=== PATIENT | male | born 1965 | race African-American/Black ===

== ENCOUNTER 2018-02-20 03:28 | Emergency (ER) | payer OTHER ==
[~2018-02-20] VITALS: Ht 177.8 cm; Wt 131.5 kg
[~2018-02-20 03:28] MED LIST: DECADRON IM; FLEXERIL PO; HYDROCODONE-ACE15 ML PO; MULTI-VITAMIN1 EAC5 PO; NORCO 5-325 TA1 EACH PO; NORCO 7.5-3251 EACH PO
[2018-02-20 03:40] VITALS: BP 153/100
[2018-02-20] MEDS ORDERED: IBUPROFEN 800800 M1 PO (03:53)
[2018-02-20] MEDS ORDERED: HYDROCODONE-AP1 EAC6 PO (03:53)
[2018-02-20] MEDS ORDERED: FLEXERIL PO (03:53)
[2018-02-20] MEDS ORDERED: ZESTRIL40 MG PO (04:04)
== END 2018-02-20 04:05 | disposition home or self-care (01) ==
LOC: M.ERS 03:28
DX: M54.31 Sciatica, right side (principal); Z88.0 Allergy status to penicillin; Z88.1 Allergy status to other antibiotic agents; Z88.8 Allergy status to other drugs, medicaments and biological substances

== ENCOUNTER 2018-05-10 23:39 | Emergency (ER) | payer OTHER ==
[~2018-05-10] VITALS: Ht 177.8 cm; Wt 131.5 kg
[~2018-05-10 23:39] MED LIST changes: +HYDROCODONE-AP1 EAC6 PO; +IBUPROFEN 800800 M1 PO; +ZESTRIL40 MG PO
[2018-05-11] MEDS ORDERED: ZESTRIL40 MG (00:02)
[2018-05-11] MEDS ORDERED: GLYBURIDE-METF1 EAC1 (00:04)
[2018-05-11] MEDS ORDERED: NORCO 5-325 TA1 EACH PO (00:12)
[2018-05-11] MEDS ORDERED: FLEXERIL PO (00:12)
[2018-05-11 00:22] VITALS: BP 160/95
== END 2018-05-11 00:23 | disposition home or self-care (01) ==
LOC: M.ERS 23:39
DX: G89.29 Other chronic pain (principal); M54.5 Low back pain; Z88.0 Allergy status to penicillin; Z88.6 Allergy status to analgesic agent; Z88.8 Allergy status to other drugs, medicaments and biological substances

== ENCOUNTER 2018-12-22 02:05 | Emergency (ER) | payer OTHER ==
[~2018-12-22] VITALS: Ht 177.8 cm; Wt 122.5 kg
[~2018-12-22 02:05] MED LIST changes: +CYCLOBENZAPRINE5 MG PO; +GLYBURIDE-METF1 EAC1; +PERCOCET PO; +ZESTRIL40 MG
[2018-12-22] MEDS ORDERED: FLEXERIL PO (02:40)
[2018-12-22] MEDS ORDERED: PERCOCET 5-3251 EACH PO (02:40)
[2018-12-22 02:57] VITALS: BP 132/90
== END 2018-12-22 02:57 | disposition home or self-care (01) ==
LOC: M.ERS 02:05
DX: M54.16 Radiculopathy, lumbar region (principal); E11.9 Type 2 diabetes mellitus without complications; Z88.6 Allergy status to analgesic agent; Z88.0 Allergy status to penicillin; Z88.8 Allergy status to other drugs, medicaments and biological substances

== ENCOUNTER 2019-05-07 07:30 | Emergency (ER) | payer OTHER ==
[~2019-05-07] VITALS: Ht 177.8 cm; Wt 122.5 kg
[~2019-05-07 07:30] MED LIST changes: +LISINOPRIL-HCT1 EAC1 PO; +PERCOCET 5-3251 EACH PO; -ZESTRIL40 MG
[2019-05-07 07:40] VITALS: BP 157/94
[2019-05-07] MEDS ORDERED: TRAMADOL 50 MG50 MG PO (07:52)
[2019-05-07] MEDS ORDERED: FLEXERIL PO (07:52)
[2019-05-07] MEDS ORDERED: LISINOPRIL-HCT1 EAC1 PO (07:52)
== END 2019-05-07 08:16 | disposition home or self-care (01) ==
LOC: M.ERS 07:30
DX: M54.5 Low back pain (principal); E11.9 Type 2 diabetes mellitus without complications; Z88.0 Allergy status to penicillin; Z88.6 Allergy status to analgesic agent; Z88.8 Allergy status to other drugs, medicaments and biological substances

== ENCOUNTER 2019-07-27 15:12 | Emergency (ER) | payer OTHER ==
[~2019-07-27] VITALS: Ht 177.8 cm; Wt 127.0 kg
[~2019-07-27 15:12] MED LIST changes: +TRAMADOL 50 MG50 MG PO
[2019-07-27] MEDS ORDERED: METFORMIN HCL500 M3 PO (15:25)
[2019-07-27] MEDS ORDERED: NORCO 5-325 TA1 EAC1 PO (16:09)
[2019-07-27 16:46] VITALS: BP 138/73
== END 2019-07-27 16:47 | disposition home or self-care (01) ==
LOC: M.ERS 15:12
DX: M54.5 Low back pain (principal); E11.9 Type 2 diabetes mellitus without complications; Z88.0 Allergy status to penicillin; Z88.6 Allergy status to analgesic agent

== ENCOUNTER 2019-08-29 01:46 | Emergency (ER) | payer OTHER ==
[~2019-08-29] VITALS: Ht 177.8 cm; Wt 122.5 kg
[~2019-08-29 01:46] MED LIST changes: +METFORMIN HCL500 M3 PO; +NORCO 5-325 TA1 EAC1 PO
[2019-08-29 01:52] VITALS: BP 152/91
[2019-08-29] MEDS ORDERED: GLYBURIDE 5 MG T5 M1 PO (01:56)
[2019-08-29] MEDS ORDERED: FLEXERIL PO (02:07)
[2019-08-29] MEDS ORDERED: NORCO 5-325 TA1 EAC1 PO (02:07)
== END 2019-08-29 02:13 | disposition home or self-care (01) ==
LOC: M.ERS 01:46
DX: M54.5 Low back pain (principal); E11.9 Type 2 diabetes mellitus without complications; Z88.0 Allergy status to penicillin; Z88.6 Allergy status to analgesic agent

== ENCOUNTER 2020-01-14 12:33 | Emergency (ER) | payer OTHER ==
[~2020-01-14] VITALS: Ht 182.9 cm; Wt 122.5 kg
[~2020-01-14 12:33] MED LIST changes: +GLYBURIDE 5 MG T5 M1 PO
[2020-01-14 12:40] VITALS: BP 127/87
[2020-01-14] MEDS ORDERED: FLEXERIL PO (12:50)
[2020-01-14] MEDS ORDERED: NORCO 5-325 TA1 EAC2 PO (12:50)
== END 2020-01-14 13:00 | disposition home or self-care (01) ==
LOC: M.ERS 12:33
DX: M54.41 Lumbago with sciatica, right side (principal); E11.9 Type 2 diabetes mellitus without complications; Z88.0 Allergy status to penicillin; Z88.6 Allergy status to analgesic agent; Z88.8 Allergy status to other drugs, medicaments and biological substances

== ENCOUNTER 2020-02-12 09:02 | Emergency (ER) | payer OTHER ==
[~2020-02-12] VITALS: Ht 177.8 cm; Wt 122.5 kg
[~2020-02-12 09:02] MED LIST changes: +NORCO 5-325 TA1 EAC2 PO
[2020-02-12] MEDS ORDERED: NORCO 5-325 TA1 EAC2 PO (09:36)
[2020-02-12] MEDS ORDERED: FLEXERIL PO (09:36)
[2020-02-12 09:46] VITALS: BP 138/73
== END 2020-02-12 09:48 | disposition home or self-care (01) ==
LOC: M.ERS 09:02
DX: M54.5 Low back pain (principal); G89.29 Other chronic pain; E11.9 Type 2 diabetes mellitus without complications; Z88.6 Allergy status to analgesic agent; Z88.0 Allergy status to penicillin; Z88.8 Allergy status to other drugs, medicaments and biological substances

== ENCOUNTER 2020-05-04 11:20 | Emergency (ER) | payer OTHER ==
[~2020-05-04] VITALS: Ht 177.8 cm; Wt 122.5 kg
[2020-05-04 11:33] VITALS: BP 104/83
[2020-05-04] MEDS ORDERED: VITAMINS A-D-E1 EACH PO (11:35)
[2020-05-04] MEDS ORDERED: FLEXERIL PO (12:11)
[2020-05-04] MEDS ORDERED: NORCO 7.5-3251 EACH PO (12:11)
== END 2020-05-04 12:22 | disposition home or self-care (01) ==
LOC: M.ERS 11:20
DX: M54.41 Lumbago with sciatica, right side (principal); G89.29 Other chronic pain; I10 Essential (primary) hypertension; E11.9 Type 2 diabetes mellitus without complications; Z79.899 Other long term (current) drug therapy; Z88.0 Allergy status to penicillin; Z88.8 Allergy status to other drugs, medicaments and biological substances

== ENCOUNTER 2020-07-08 09:48 | Emergency (ER) | payer OTHER ==
[~2020-07-08] VITALS: Ht 177.8 cm; Wt 122.5 kg
[~2020-07-08 09:48] MED LIST changes: +VITAMINS A-D-E1 EACH PO
[2020-07-08] MEDS ORDERED: HYDROCODON-ACE1 EAC7 PO (10:23)
[2020-07-08] MEDS ORDERED: FLEXERIL PO (10:23)
[2020-07-08 10:26] VITALS: BP 162/98
== END 2020-07-08 10:27 | disposition home or self-care (01) ==
LOC: M.ERS 09:48
DX: M54.5 Low back pain (principal); E11.9 Type 2 diabetes mellitus without complications; Z88.6 Allergy status to analgesic agent; Z88.0 Allergy status to penicillin; Z88.8 Allergy status to other drugs, medicaments and biological substances

== ENCOUNTER 2021-03-08 13:56 | Emergency (ER) | payer OTHER ==
[~2021-03-08] VITALS: Ht 208.3 cm; Wt 113.4 kg
[~2021-03-08 13:56] MED LIST changes: +HYDROCODON-ACE1 EAC7 PO
[2021-03-08] MEDS ORDERED: TYLENOL325 M1 PO (14:05)
[2021-03-08] MEDS ORDERED: LISINOPRIL-HCT1 EAC1 PO ×2 (14:30)
[2021-03-08] MEDS ORDERED: NORCO7.5 PO ×2 (14:30→14:34)
[2021-03-08 14:39] VITALS: BP 122/68
== END 2021-03-08 14:41 | disposition home or self-care (01) ==
LOC: M.ERS 13:56
DX: M54.59 Other low back pain (principal); E11.9 Type 2 diabetes mellitus without complications; Z76.0 Encounter for issue of repeat prescription; Z79.899 Other long term (current) drug therapy; Z88.5 Allergy status to narcotic agent; Z88.0 Allergy status to penicillin

== ENCOUNTER 2021-04-13 14:56 | Emergency (ER) | payer OTHER ==
[~2021-04-13] VITALS: Ht 177.8 cm; Wt 117.9 kg
[~2021-04-13 14:56] MED LIST changes: +NORCO7.5 PO; +TYLENOL325 M1 PO
[2021-04-13] MEDS ORDERED: HYDROCODON-ACE1 EAC7 PO (16:29)
[2021-04-13 16:41] VITALS: BP 153/92
== END 2021-04-13 16:41 | disposition home or self-care (01) ==
LOC: M.ERS 14:56
DX: M54.31 Sciatica, right side (principal); E11.9 Type 2 diabetes mellitus without complications; Z79.899 Other long term (current) drug therapy; Z88.6 Allergy status to analgesic agent; Z88.0 Allergy status to penicillin; Z88.8 Allergy status to other drugs, medicaments and biological substances